=== PATIENT | male | born 1970 | race American Indian/Alaskan Native ===

== ENCOUNTER 2017-04-05 11:08 | Emergency (ER) | payer OTHER ==
[2017-04-05 11:22] VITALS: BP 158/91
--- NOTE | 2017-04-05 12:57 | XRay Report ---
X-RAY RIGHT CALCANEUS 2 VIEWS: 04/05/17 12:12:00 CLINICAL: Posterior wound on the medial aspect of the heel. Foreign body search. FINDINGS: Mild soft tissue edema and vascular calcifications. No foreign body. Moderate osteopenia. No fracture or dislocation. IMPRESSION: No foreign body. Nonspecific soft tissue edema.
--- NOTE | 2017-04-05 13:04 | Emergency Department Report ---
ED Lower Extremity HPI - General Chief Complaint: Extremity Problem,Nontraumatic Stated Complaint: foot pain Source: patient Mode of arrival: Ambulatory Limitations: No Limitations - History of Present Illness Initial Comments: 46-year-old -[place] Citizen male comes in for concerns of the lesion to his right knee he'll heal. Patient reports he had been dealing with this for about a month and a half. Patient has removal of possible foreign objects prior. 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 Has a history of asthma. MD Complaint: foot injury -: month(s) (1.5) Injury: Foot: Left Severity scale (0 -10): 7 Worsens With: weight bearing Associated Symptoms: unable to bear weight Treatments Prior to Arrival: NSAIDS - Related Data Previous Rx's Medication Instructions Recorded Last Taken Type Amoxicillin 500 mg PO BID 10 Days #20 capsule 04/05/17 Unknown Rx Ibuprofen [Motrin 800 MG tab] 800 mg PO Q8HR #15 tablet 04/05/17 Unknown Rx Allergies Allergy/AdvReac Type Severity Reaction Status Date / Time No Known Allergies Allergy Verified 04/05/17 11:16 ED Review of Systems ROS: Stated complaint: foot pain Other details as noted in HPI Constitutional: denies: chills, fever Eyes: denies: eye pain, eye discharge, vision change ENT: denies: ear pain, throat pain Respiratory: denies: cough, shortness of breath, wheezing Cardiovascular: denies: chest pain, palpitations Endocrine: no symptoms reported Gastrointestinal: denies: abdominal pain, nausea, diarrhea Genitourinary: denies: urgency, dysuria Musculoskeletal: denies: back pain, joint swelling, arthralgia Skin: other ED Past Medical Hx - Past Medical History Previous Medical History?: Yes Hx Asthma: Yes - Surgical History Past Surgical History?: No - Social History Smoking Status: Current Some Day Smoker Substance Use Type: Alcohol, Marijuana - Medications Home Medications: Home Medications Medication Instructions Recorded Confirmed Last Taken Type Amoxicillin 500 mg PO BID 10 Days #20 capsule 04/05/17 Unknown Rx Ibuprofen [Motrin 800 MG tab] 800 mg PO Q8HR #15 tablet 04/05/17 Unknown Rx ED Physical Exam - General Limitations: No Limitations General appearance: alert, in no apparent distress - Head Head exam: Present: atraumatic, normocephalic - Eye Eye exam: Present: normal appearance - Expanded Lower Extremity Exam Left Lower Leg exam: Present: normal inspection Ankle exam: Present: normal inspection Foot/Toe exam: Present: tenderness (calcaneal ), puncture wound, calcaneal tenderness. Absent: foreign body Neuro vascular tendon exam: Present: no vascular compromise - Skin Skin exam: Present: warm, dry, intact, other (left heal tenderness with touch, dark pin point that non erythmatous and non edematous. ) ED Course Vital Signs 04/05/17 11:16 Temperature 98.6 F Pulse Rate 54 L Respiratory 18 Rate Blood Pressure 158/91 O2 Sat by Pulse 100 Oximetry ED Lower Extremity MDM - Radiology Data Radiology results: report reviewed, image reviewed FINDINGS: Mild soft tissue edema and vascular calcifications. No foreign body. Moderate osteopenia. No fracture or dislocation. IMPRESSION: No foreign body. Nonspecific soft tissue edema. Transcribed By: REF Dictated By: SARAH DUBOIS MD Electronically Authenticated By: SARAH DUBOIS MD Signed Date/Time: 04/05/17 1252 - Medical Decision Making Patient's been evaluated as provider Ephraim. Review of x-ray shows no foreign objects cellulitis no edema. Critical care attestation.: If time is entered above; I have spent that time in minutes in the direct care of this critically ill patient, excluding procedure time. ED Disposition Clinical Impression: Foot pain, left Disposition: [id number] TO HOME OR SELFCARE Is pt being admited?: No Does the pt Need Aspirin: No Condition: Stable Additional Instructions: Complete antibiotics as prescribed. Take ibuprofen as needed for pain follow up to primary care provider if symptoms persist or gets worse. Prescriptions: Amoxicillin 500 mg PO BID 10 Days #20 capsule Ibuprofen [Motrin 800 MG tab] 800 mg PO Q8HR #15 tablet Referrals: PRIMARY CARE, [Primary Care Provider] - 3-5 Days [facility] [Provider Group] - 3-5 Days [facility] [Provider Group] - 3-5 Days Forms: Work/School Release Form(ED)
[2017-04-05] MEDS ORDERED: MOTRIN PO ONE (13:35)
== END 2017-04-05 13:58 | disposition home or self-care (01) ==
LOC: ED 11:08
DX: M79.672 Pain in left foot (principal); M25.9 Joint disorder, unspecified; J45.909 Unspecified asthma, uncomplicated; F17.200 Nicotine dependence, unspecified, uncomplicated; F12.10 Cannabis abuse, uncomplicated
CPT/HCPCS: 99283